=== PATIENT | male | born 1965 | race Caucasian/White ===

== ENCOUNTER 2018-08-09 21:06 | Emergency (ER) | payer OTHER ==
[~2018-08-09] VITALS: Ht 165.1 cm; Wt 81.7 kg
[2018-08-09] MEDS ORDERED: PRINIVIL20 M1 PO (21:18)
[2018-08-09] MEDS ORDERED: HYDROCHLOROTH12.5 M1 PO (21:18)
[2018-08-09] MEDS ORDERED: FLOMAX0.4 MG PO (21:18)
[2018-08-09 21:46] LABS: ABSOLUTE BASOPHILS 0.1 thou/uL (0.0-0.2); ABSOLUTE LYMPHOCYTES 1.5 thou/uL (0.8-5.3); ABSOLUTE MONOCYTES 0.5 thou/uL (0.0-1.2); ABSOLUTE NEUTROPHILS 6.5 thou/uL (1.6-8.1); BASOPHILS 1.1 %; EOSINOPHILS 0.4 %; HEMATOCRIT 43.1 % (42.0-52.0); HEMOGLOBIN 14.6 gm/dL (14.0-18.0); MCH 30.1 pg (26.0-34.0); MCHC 33.9 g/dL (28.0-37.0); MCV 88.6 fL (80.0-100.0); MONOCYTES 5.5 %; MPV 6.4 fl. (7.2-11.1); NUCLEATED RBCS 0 /100WBC; PLATELET COUNT* 320 thou/uL (150-400); RBC 4.87 mil/uL (4.50-6.00); RDW-CV 14.3 % (10.5-14.5); WBC 8.6 thou/uL (4.0-11.0)
[2018-08-09 22:14] LABS: ALBUMIN 3.6 g/dL (3.4-5.0); ALKALINE PHOSPHATASE 87 U/L (46-116); ANION GAP 11 mmol/L (7-16); BUN 9 mg/dL (7-18); CHLORIDE 103 mmol/L (98-107); CO2 24 mmol/L (21-32); GLUCOSE 108 mg/dL (70-99); POTASSIUM 3.4 mmol/L (3.5-5.1); SGOT 19 U/L (15-37); SGPT 25 U/L (30-65); SODIUM 138 mmol/L (136-145); TOTAL BILIRUBIN 0.5 mg/dL (<0.1-1.0); TOTAL PROTEIN 7.4 g/dL (6.4-8.2); TROPONIN-I LEVEL <0.06 ng/mL (<0.06)
[2018-08-09] MEDS ORDERED: PREDNISONE 20 M20 MG PO (22:57)
[2018-08-09] MEDS ORDERED: XARELTO15 MG PO (22:57)
[2018-08-09 23:39] VITALS: BP 146/94
--- NOTE | 2018-08-10 10:24 | EKG ---
[place] [address] ELECTROCARDIOGRAM REPORT Name: JANNET GARBER Room: [facility]#: [id number] Admission: 08/09/18 Attend Phys: Discharge: 08/09/18 Date of : 61 Report #: [id number] THIS REPORT FOR: //name// [facility] ED Test Date: 2018-08-09 Test Time: 21:32:35 Pat Name: JANNET GARBER Department: Room: Gender: M Layout Operator: SETH : 1965 Requested By: Jed Lira Order Number: [id number] MD: Enrique Bah Measurements Intervals [place] Rate: 103 P: 41 AR: 160 QRS: 47 QRSD: 106 T: 42 QT: 360 QTc: 471 Interpretive Statements Sinus tachycardia No previous ECG available for comparison Electronically Signed On 08-10-2018 10:24:07 ASSEMBLER MOVEMENT by Enrique Bah [email or web address] <ELECTRONICALLY SIGNED> By: Enrique Bah MD, [facility] 08/10/18 [id number] Enrique Bah MD, FACC /EPI
== END 2018-08-09 23:39 | disposition home or self-care (01) ==
LOC: M.ERS 21:06
PROVIDERS: Physician Assistant
DX: J44.1 Chronic obstructive pulmonary disease with (acute) exacerbation (principal); M94.0 Chondrocostal junction syndrome [Tietze]; R79.1 Abnormal coagulation profile; F17.210 Nicotine dependence, cigarettes, uncomplicated; Z88.1 Allergy status to other antibiotic agents

== ENCOUNTER 2018-09-05 08:01 | Inpatient (IN) | payer OTHER ==
[~2018-09-05] VITALS: Ht 162.6 cm; Wt 74.8 kg
[~2018-09-05 08:01] MED LIST: FLOMAX0.4 MG PO; HYDROCHLOROTH12.5 M1 PO; PREDNISONE 20 M20 MG PO; PRINIVIL20 M1 PO; XARELTO15 MG PO
[2018-09-05 08:07] VITALS: BP 178/100
[2018-09-05 08:34] LABS: BE 1.4 mmol/L (-2 to +3); PO2 77.4 mmHg (75.0-100.0)
[2018-09-05 08:39] LABS: ABSOLUTE BASOPHILS 0.1 thou/uL (0.0-0.2); ABSOLUTE EOSINOPHILS 0.2 thou/uL (0.0-0.7); ABSOLUTE LYMPHOCYTES 2.2 thou/uL (0.8-5.3); ABSOLUTE MONOCYTES 0.7 thou/uL (0.0-1.2); ABSOLUTE NEUTROPHILS 4.4 thou/uL (1.6-8.1); EOSINOPHILS 2.9 %; HEMATOCRIT 41.8 % (42.0-52.0); HEMOGLOBIN 14.3 gm/dL (14.0-18.0); LYMPHOCYTES 29.2 %; MCH 30.2 pg (26.0-34.0); MCHC 34.2 g/dL (28.0-37.0); MCV 88.6 fL (80.0-100.0); MPV 6.5 fl. (7.2-11.1); NUCLEATED RBCS 0 /100WBC; PLATELET COUNT* 314 thou/uL (150-400); POLYS 57.9 %; RBC 4.72 mil/uL (4.50-6.00); RDW-CV 14.1 % (10.5-14.5); WBC 7.6 thou/uL (4.0-11.0)
[2018-09-05 08:45] LABS: ANION GAP 10 mmol/L (7-16); APTT 28.1 Seconds (25.0-31.3); BUN 17 mg/dL (7-18); CALCIUM 8.8 mg/dL (8.5-10.1); CHLORIDE 103 mmol/L (98-107); CO2 24 mmol/L (21-32); CREATININE 1.1 mg/dL (0.6-1.3); GLUCOSE 104 mg/dL (70-99); POTASSIUM 3.8 mmol/L (3.5-5.1); SODIUM 137 mmol/L (136-145)
[2018-09-05 08:56] LABS: ALBUMIN 3.8 g/dL (3.4-5.0); ALKALINE PHOSPHATASE 80 U/L (46-116); NT-PRO BRAIN NAT PEPTIDE 11 pg/mL (<300); SGOT 25 U/L (15-37); SGPT 65 U/L (30-65); TOTAL BILIRUBIN 0.3 mg/dL (<0.1-1.0); TOTAL PROTEIN 7.3 g/dL (6.4-8.2); TROPONIN-I LEVEL <0.06 ng/mL (<0.06)
[2018-09-05 12:22] VITALS: BP 130/72
[2018-09-05 13:00] VITALS: BP 137/85
--- NOTE | 2018-09-05 16:31 | EKG ---
[place] [address] ELECTROCARDIOGRAM REPORT Name: SHIRLENE,JANNET Hendrickson Room: [address] ADM IN .R.#: [id number] Admission: 09/05/18 Attend Phys: Master Toledo MD Discharge: Date of : 61 Report #: [id number] THIS REPORT FOR: //name// [facility] ED Test Date: 2018-09-05 Test Time: 08:25:32 Pat Name: JANNET GARBER Department: Room: [facility] Gender: Plant Technical Specialist: Lane KLEIN : 1965 Requested By: Tiki Campos Order Number: [id number] MD: Maynor Mckeon Measurements Intervals [place] Rate: 87 P: 36 MA: 143 QRS: 53 QRSD: 103 T: 39 QT: 371 QTc: 447 Interpretive Statements Sinus rhythm Compared to ECG 08/09/2018 21:32:35 Sinus tachycardia no longer present Electronically Signed On 09-05-2018 16:30:57 MANAGER BUILDING by Maynor Mckeon [email or web address] <ELECTRONICALLY SIGNED> By: Maynor Mckeon MD, [facility] 09/05/18 1630 0825 Maynor Mckeon MD, [facility] /EPI
[2018-09-05 16:54] VITALS: BP 131/69
[2018-09-05 20:00] VITALS: BP 150/71
[2018-09-06] VITALS: BP 119/71
[2018-09-06 01:07] LABS: AMP/METHAMP Negative (Negative); BARBITURATES Negative (Negative); BENZODIAZEPINES Negative (Negative); COCAINE Negative (Negative); METHADONE Negative (Negative); OPIATES Negative (Negative); PCP Negative (Negative); THC Negative (Negative)
[2018-09-06 04:00] VITALS: BP 111/59
[2018-09-06 05:03] LABS: HEMATOCRIT 36.7 % (42.0-52.0); MCHC 33.3 g/dL (28.0-37.0); MPV 6.7 fl. (7.2-11.1); NUCLEATED RBCS 0 /100WBC; PLATELET COUNT* 299 thou/uL (150-400); RBC 4.08 mil/uL (4.50-6.00); RDW-CV 14.4 % (10.5-14.5); WBC 14.7 thou/uL (4.0-11.0)
[2018-09-06 05:10] LABS: HEMOGLOBIN 12.2 gm/dL (14.0-18.0)
[2018-09-06 05:24] LABS: CALCIUM 8.6 mg/dL (8.5-10.1); CREATININE 1.1 mg/dL (0.6-1.3); POTASSIUM 4.1 mmol/L (3.5-5.1)
[2018-09-06 05:50] LABS: ABSOLUTE LYMPHOCYTES 0.6 thou/uL (0.8-5.3); ABSOLUTE MONOCYTES 0.9 thou/uL (0.0-1.2); ABSOLUTE NEUTROPHILS 13.2 thou/uL (1.6-8.1); ANISOCYTOSIS 1+; PLATELET ESTIMATE ADEQUATE; POIKILOCYTOSIS 1+
[2018-09-06 08:34] VITALS: BP 138/85
[2018-09-06 10:00] VITALS: BP 129/74
[2018-09-06 12:00] VITALS: BP 129/74
--- NOTE | 2018-09-06 16:56 | CARDNUC ---
[place] [address] CARDIAC NUCLEAR IMAGING REPORT Name: JANNET GARBER Room: [address] IN [facility]#: [id number] Admission: 09/05/18 Attend Phys: Master Toledo, Discharge: Date of : 61 Date of Service: 09/06/18 1656 Report #: [id number] THIS REPORT FOR: //name// APPROVED REPORT Study performed: 09/05/2018 12:39:00 Indication: Chest pain, Dyspnea, Patient Location: In-Patient Stress Tech: Marie Wilkerson Stress Nurse: Esperanza Palma RN BMI: 0 Medical History Medical History: COPD Medications: hydralazine, xarelto, lisinopril, hctz Allergies: cipro Cardiac Risk Factors: age, tobacco Exercise History: Indeterminate Resting Data Rest SPECT myocardial perfusion imaging was performed in supine position 30 minutes following the intravenous injection of 10.7 mCi of Tc-99m Sestamibi. Time of rest injection: 08:10 The images were gated to evaluate regional wall motion and calculate left ventricular ejection fraction. Administration Route: IV Administration Site: Right AC Pharmacologic Stress Pharmacologic stress test was performed by injecting Regadenoson 0.4 mg IV push over 10-15 seconds immediately followed by the intravenous injection of 32.3 mCi of Tc-99m Sestamibi. Time of stress injection: 09:55 Administration Route: IV Administration Site: Right AC Heart Rate at time of stress injection: 130 bpm. Gated Stress SPECT was performed 40 minutes after stress injection. The images were gated to evaluate regional wall motion and calculate left ventricular ejection fraction. Prone [place] [address] CARDIAC NUCLEAR IMAGING REPORT Name: JANNET GARBER Room: [address]#: [id number] Admission: 09/05/18 Attend Phys: Master Toledo, Discharge: Date of : 61 Date of Service: 09/06/18 1656 Report #: [id number] Stress Test Details Stress Test: Pharmacologic stress was paired with low level exercise. HR Max Heart Rate (APMHR): 166 bpm Resting HR: 104 bpm Target HR (85% APMHR): 141 bpm Max HR Achieved: 130 bpm % of APMHR: 78 Recovery HR: 114 bpm BP Resting BP: 114/81 mmHg Max BP: 185/78 mmHg Recovery BP: 159/86 mmHg ECG Resting ECG: Sinus Rhythm Stress ECG: Sinus Tachycardia ST Change: None Arrhythmia: None Recovery ECG: Sinus Rhythm Recovery ST Change: None Recovery Arrhythmia: None Clinical Reason for Termination: Completed protocol The patient tolerated walking Lexiscan protocol without significant cardiac symptoms. Nurse Comments pt gait too unsteady to walk on treadmill Stress ECG Conclusion The baseline 12-lead EKG shows sinus rhythm with no significant ST or T wave abnormality. EKGs obtained during and post walking Lexiscan infusion showed sinus rhythm and sinus tachycardia with no significant ST or T wave changes when compared to baseline. There were no stress-induced arrhythmias. Study Quality Study: Good Artifact: Mild Diaphragmatic artifact Study Data At rest, the left ventricular ejection fraction was 80%.. Post stress, the left ventricular ejection was 80 %.. [place] [address] CARDIAC NUCLEAR IMAGING REPORT Name: JANNET GARBER Room: [address] IN ..#: [id number] Admission: 09/05/18 Attend Phys: Master Toledo, Discharge: Date of : 61 Date of Service: 09/06/18 1656 Report #: [id number] TID = 1.13. Perfusion Mild photopenia of the inferior wall on both stress and rest images with normal underlying wall motion abnormality consistent with diaphragmatic attenuation artifact. No other defects noted. Wall Motion Normal left ventricular wall motion. Nuclear Conclusion ECG Findings: negative for ischemia Clinical Findings: negative for ischemia Nuclear Findings: negative for ischemia Exercise Capacity: not assessed Left Ventricular Function: normal Risk Study: low Myocardial perfusion images show no defect to suggest infarct. Left ventricular systolic function normal on gated studies with normal wall motion. This is a low risk study. <Conclusion> The baseline 12-lead EKG shows sinus rhythm with no significant ST or T wave abnormality. EKGs obtained during and post walking Lexiscan infusion showed sinus rhythm and sinus tachycardia with no significant ST or T wave changes when compared to baseline. There were no stress-induced arrhythmias. <ELECTRONICALLY SIGNED> By: Maynor Mckeon MD, FACC 09/06/18 1656 165 165 Maynor Mckeon MD, FACC /INF
[2018-09-06] MEDS ORDERED: SYMBICORT160 MCG/4. INH (17:38)
[2018-09-06] MEDS ORDERED: CEFDINIR300 MG PO (17:38)
[2018-09-06] MEDS ORDERED: PROAIR HFA8.5 GM INH (17:42)
[2018-09-06] MEDS ORDERED: PREDNISONE 10 M10 MG PO (17:44)
[2018-09-06] MEDS ORDERED: ROBITUSSIN100 MG/53 PO (17:57)
[2018-09-06 18:06] VITALS: BP 129/74
--- NOTE | 2018-09-07 08:20 | CON ---
[address] [address] CONSULTATION Name: SHIRLENEJANNET W Room: [address] IN M.R.#: [id number] Admission: 09/05/18 Attend Phys: Master Toledo MD Discharge: 09/06/18 Date of : 61 Report #: [id number] THIS REPORT FOR: //name// CC: Jacinto Sandoval DO Master Toledo DATE OF SERVICE: 09/05/2018 ATTENDING PHYSICIAN: Master Toledo MD LOCATION: The patient is located in room 229. PRIMARY CARE PHYSICIAN: Jacinto Sandoval DO HISTORY OF PRESENT ILLNESS: Thank you for referring the above patient for pulmonary consultation. I saw the patient in the hospital at [facility] on 09/05/2018. The patient has had dyspnea, cough and bronchitis for the last month or so. He has been more short of breath. He thinks he has actually been having some atypical chest pain, cough and shortness of breath for about 6 months now. He has had two CT angios of the chest, which have been negative for pulmonary emboli and negative for aortic dissection. He has upper lobe emphysema. Initially, his chest x-ray a month ago in the Emergency Room thought he had a 4 cm right lower lobe rounded infiltrate that has resolved on CAT scan. He is trying to cough up and bring up some thick tanned clear sputum. It is hard to mobilize. He has been on two prednisone tapers from which he feels better and then when he is just on the albuterol inhaler he feels worse. He was half pack to a pack a day smoking . He says last time he smoked a cigarette was a month ago. I am not sure if he is up to date on immunizations. The patient was actually on Xarelto for a while and then off the Xarelto. The patient has neck pain, upper chest pain, wheezing and dyspnea and feels better after his breathing treatments. He does not have a nebulizer at home. Working on insurance. He is living with his mother currently. PAST MEDICAL HISTORY: COPD for the past 1 to 6 months, he has had some atypical chest pain, elevated D-dimer, had a history of prostate enlargement in the past and also has a history of mild hypertension. ALLERGIES: HE HAS MEDICAL ALLERGIES TO CIPROFLOXACIN, WHICH GIVES HIM NAUSEA. MEDICATIONS: His outpatient medications include lisinopril, Prinivil 20 mg daily, hydrochlorothiazide 12.5 mg daily and tamsulosin 0.4 mg daily. Currently in the hospital, he is on IV Solu-Medrol 60 mg q.8 hours, ceftriaxone 1 gram IV piggyback daily and [place] [address] CONSULTATION Name: JANNET GARBER Room: [address]#: [id number] Admission: 09/05/18 Attend Phys: Master Toledo MD Discharge: 09/06/18 Date of : 61 Report #: [id number] FAMILY HISTORY: Negative for premature cardiopulmonary disease. 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 He states he has had some back pain and problems in his back with some back surgery and that he is disabled at this time. He is a prior former smoker of a pack a day. He states he quit about a month ago. He has about a 67-dntt-eisz history of smoking. He denies any alcohol or illicit drug use. REVIEW OF SYSTEMS: Fourteen point review of systems reviewed and negative except for pertinent positives noted in the HPI. PHYSICAL EXAMINATION: GENERAL: This is a 52-year-old male, in mild distress. He can talk to me in full sentences at this time. VITAL SIGNS: Blood pressure is 130/72, heart rate is 96-100, respirations are 16 over a backup rate of 16, room air sats 97%. He is 5 feet 7 inches tall, weight 75 kilograms or 170 pounds and BMI is 28. HEENT: Sinuses nontender. Pharynx, he has some periodontal disease. Teeth are in fair repair, but he does have some poor dentition noted. NECK: Supple without nodes. No subcutaneous air is noted. No masses or adenopathy. CHEST: Shows diminished breath sounds with a few rhonchi bilaterally in the upper lobes, prolonged expiratory phase noted. CARDIOVASCULAR: Regular rate and rhythm without murmur, gallop or rub. Heart rate is 96-100. No S3 is noted. No chest wall tenderness. ABDOMEN: Soft without masses or megaly. EXTREMITIES: No calf tenderness. No cyanosis, clubbing or edema. NEUROLOGIC: Grossly intact. He can get up and off the chair without problems. LABORATORY DATA: From 09/05/2018, hemoglobin is 14, white count 7600, platelets are 314,000 with normal differential. Sodium is 137, potassium is 3.8, carbon dioxide is 24 and glucose is 104. Anti-proBNP is 11. Albumin is 3.8. ABGs on room air show pO2 of 77, a pH 7.51, pCO2 is 30, bicarbonate is 23, saturation is 95% and carboxyhemoglobin is only 0.3. Coags are within normal limits. CT angio of the chest was negative for pulmonary emboli, upper lobe COPD is noted. Neck, thoracic and mediastinum are unremarkable. The abdominal aorta is normal in caliber and size. No pulmonary embolism was noted. IMPRESSION: 1. Dyspnea, most likely related to upper lobe emphysema, probably moderate to moderately severe. 2. Acute bronchitis and bronchospasm. 3. Dyspnea. 4. Hypertension. 5. Cigarette use. 6. [place] [address] CONSULTATION Name: JANNET GARBER Room: [address]#: [id number] Admission: 09/05/18 Attend Phys: Master Toledo MD Discharge: 09/06/18 Date of : 61 Report #: [id number] PLAN: The patient is going to have a chemical induced stress test tomorrow, need to treat his bronchospasm, we will add DuoNeb treatments, add some montelukast something relatively inexpensive he can take at home. We will set him up for DuoNeb nebulizers at home even though he does not have insurance. We will see if we can get that set up and have him look into getting Medicaid or some sort of insurance. Outpatient PFTs and discontinuing all smoking would be helpful. May need room air exercise oximetry before he goes home. This has been a level 5 consult on this patient. <ELECTRONICALLY SIGNED> By: Mike Redmond MD 09/07/18 0820 1425 [id number] patti Art
== END 2018-09-06 18:32 | disposition home or self-care (01) | DRG 202 ==
LOC: M.ERS 08:01 → M.TBA-ER 10:46 → M.2W 10:46
PROVIDERS: Personal Emergency Response Attendant; ADMIT Internal Medicine
DX: J20.9 Acute bronchitis, unspecified (principal); J44.0 Chronic obstructive pulmonary disease with (acute) lower respiratory infection; J44.1 Chronic obstructive pulmonary disease with (acute) exacerbation; N40.0 Benign prostatic hyperplasia without lower urinary tract symptoms; I10 Essential (primary) hypertension; R07.89 Other chest pain; R73.9 Hyperglycemia, unspecified; Z88.1 Allergy status to other antibiotic agents; Z87.891 Personal history of nicotine dependence; Z79.899 Other long term (current) drug therapy

== ENCOUNTER 2018-10-03 21:48 | Emergency (ER) | payer OTHER ==
[~2018-10-03] VITALS: Ht 162.6 cm; Wt 77.1 kg
[~2018-10-03 21:48] MED LIST changes: +CEFDINIR300 MG PO; +PREDNISONE 10 M10 MG PO; +PROAIR HFA8.5 GM INH; +ROBITUSSIN100 MG/53 PO; +SYMBICORT160 MCG/4. INH
[2018-10-03] MEDS ORDERED: FLONASE 0.05%50 MCG NASAL (22:01)
[2018-10-03 22:36] LABS: ABSOLUTE BASOPHILS 0.1 thou/uL (0.0-0.2); ABSOLUTE EOSINOPHILS 0.1 thou/uL (0.0-0.7); ABSOLUTE LYMPHOCYTES 1.8 thou/uL (0.8-5.3); ABSOLUTE MONOCYTES 0.7 thou/uL (0.0-1.2); ABSOLUTE NEUTROPHILS 6.2 thou/uL (1.6-8.1); BASOPHILS 0.8 %; EOSINOPHILS 1.1 %; HEMOGLOBIN 14.3 gm/dL (14.0-18.0); LYMPHOCYTES 20.2 %; MCHC 33.9 g/dL (28.0-37.0); MCV 88.4 fL (80.0-100.0); MONOCYTES 7.6 %; MPV 6.2 fl. (7.2-11.1); NUCLEATED RBCS 0 /100WBC; PLATELET COUNT* 337 thou/uL (150-400); POLYS 70.3 %; RBC 4.76 mil/uL (4.50-6.00); RDW-CV 15.1 % (10.5-14.5); WBC 8.9 thou/uL (4.0-11.0)
[2018-10-03 22:58] LABS: ALBUMIN 3.7 g/dL (3.4-5.0); ALKALINE PHOSPHATASE 73 U/L (46-116); ANION GAP 9 mmol/L (7-16); BUN 12 mg/dL (7-18); CHLORIDE 102 mmol/L (98-107); CO2 26 mmol/L (21-32); CREATININE 1.1 mg/dL (0.6-1.3); GLUCOSE 109 mg/dL (70-99); POTASSIUM 3.6 mmol/L (3.5-5.1); SGOT 40 U/L (15-37); SGPT 109 U/L (30-65); SODIUM 137 mmol/L (136-145); TOTAL BILIRUBIN 0.5 mg/dL (<0.1-1.0); TOTAL PROTEIN 7.3 g/dL (6.4-8.2); TROPONIN-I LEVEL <0.06 ng/mL (<0.06)
[2018-10-03 23:15] LABS: INFLUENZA A ANTIGEN None Detected (None Detect); INFLUENZA B ANTIGEN None Detected (None Detect)
[2018-10-03] MEDS ORDERED: PREDNISONE 10 M10 M1 PO (23:24)
[2018-10-03 23:30] VITALS: BP 145/78
--- NOTE | 2018-10-04 09:39 | EKG ---
[place] [address] ELECTROCARDIOGRAM REPORT Name: RAJENDRA GARBERNIS Madhavi Room: [facility]#: [id number] Admission: 10/03/18 Attend Phys: Discharge: 10/03/18 Date of : 61 Report #: [id number] THIS REPORT FOR: //name// [facility] Test Date: 2018-10-03 Test Time: 22:23:23 Pat Name: JANNET GARBER Department: Room: Gender: M Time Study Observer: : 1965 Requested By: Adali Reynoso Order Number: [id number] MD: Wilbert Ty Measurements Intervals [place] Rate: 90 P: 54 ID: [id number] QRS: 35 QRSD: 98 T: 65 QT: 391 QTc: 479 Interpretive Statements Sinus rhythm ST elevation, consider early repolarization Borderline prolonged QT interval Compared to ECG 09/05/2018 08:25:32 no change Electronically Signed On 10-04-2018 9:39:03 CDT by Wilbert Ty [email or web address] <ELECTRONICALLY SIGNED> By: Wilbert Ty MD, [facility] 10/04/18 0939 22 22 Wilbert Ty MD, FACC /EPI
== END 2018-10-03 23:30 | disposition home or self-care (01) ==
LOC: M.ERS 21:48
PROVIDERS: Nurse Practitioner Family
DX: J44.1 Chronic obstructive pulmonary disease with (acute) exacerbation (principal); Z88.1 Allergy status to other antibiotic agents

== ENCOUNTER 2018-10-07 20:48 | Emergency (ER) | payer OTHER ==
[~2018-10-07] VITALS: Ht 162.6 cm; Wt 77.1 kg
[~2018-10-07 20:48] MED LIST changes: +FLONASE 0.05%50 MCG NASAL; +PREDNISONE 10 M10 M1 PO
[2018-10-07 22:05] LABS: ABSOLUTE LYMPHOCYTES 2.1 thou/uL (0.8-5.3); ABSOLUTE MONOCYTES 0.7 thou/uL (0.0-1.2); ABSOLUTE NEUTROPHILS 6.7 thou/uL (1.6-8.1); BASOPHILS 0.5 %; EOSINOPHILS 0.4 %; HEMATOCRIT 41.2 % (42.0-52.0); HEMOGLOBIN 13.9 gm/dL (14.0-18.0); LYMPHOCYTES 22.2 %; MCH 30.1 pg (26.0-34.0); MCHC 33.7 g/dL (28.0-37.0); MCV 89.3 fL (80.0-100.0); MONOCYTES 7.3 %; MPV 6.2 fl. (7.2-11.1); NUCLEATED RBCS 0 /100WBC; PLATELET COUNT* 373 thou/uL (150-400); POLYS 69.6 %; RBC 4.62 mil/uL (4.50-6.00); WBC 9.6 thou/uL (4.0-11.0)
[2018-10-07 22:22] LABS: ALBUMIN 3.6 g/dL (3.4-5.0); ALKALINE PHOSPHATASE 64 U/L (46-116); ANION GAP 8 mmol/L (7-16); BUN 19 mg/dL (7-18); CALCIUM 8.1 mg/dL (8.5-10.1); CHLORIDE 101 mmol/L (98-107); CO2 24 mmol/L (21-32); CREATININE 1.2 mg/dL (0.6-1.3); GLUCOSE 100 mg/dL (70-99); POTASSIUM 3.5 mmol/L (3.5-5.1); SGOT 17 U/L (15-37); SGPT 53 U/L (30-65); SODIUM 133 mmol/L (136-145); TOTAL BILIRUBIN 0.4 mg/dL (<0.1-1.0); TOTAL PROTEIN 6.8 g/dL (6.4-8.2); TROPONIN-I LEVEL <0.06 ng/mL (<0.06)
[2018-10-08] MEDS ORDERED: ALBUTEROL2.5 MG/31 INH (00:17)
[2018-10-08] MEDS ORDERED: LOPRESSOR50 PO (00:17)
[2018-10-08] MEDS ORDERED: SINGULAIR 10 MG10 M1 PO (00:17)
[2018-10-08 00:30] VITALS: BP 100/68
--- NOTE | 2018-10-08 12:15 | EKG ---
[place] [address] ELECTROCARDIOGRAM REPORT Name: RAJENDRA GARBERNIS IVIS Room: [facility]#: [id number] Admission: 10/07/18 Attend Phys: Discharge: 10/08/18 Date of : 61 Report #: [id number] THIS REPORT FOR: //name// [facility] ED Test Date: 2018-10-07 Test Time: 21:18:22 Pat Name: JANNET GARBER Department: Room: Gender: M Slate Worker: JOSE : 1965 Requested By: Marli Crooks Order Number: [id number] MD: Maynor Mckeon Measurements Intervals [place] Rate: 98 P: 32 CT: 154 QRS: 34 QRSD: 100 T: 41 QT: 344 QTc: 440 Interpretive Statements Sinus rhythm Abnormal R-wave progression, late transition Compared to ECG 10/03/2018 22:23:23 ST (T wave) deviation no longer present Electronically Signed On 10-08-2018 12:15:13 CDT by Maynor Mckeon [email or web address] <ELECTRONICALLY SIGNED> By: Maynor Mckeon MD, [facility] 10/08/18 1215 17 17 Maynor Mckeon MD, FAC /EPI
== END 2018-10-08 00:42 | disposition home or self-care (01) ==
LOC: M.ERS 20:48
PROVIDERS: Emergency Medicine
DX: J31.0 Chronic rhinitis (principal); R22.1 Localized swelling, mass and lump, neck; Z88.1 Allergy status to other antibiotic agents; J44.9 Chronic obstructive pulmonary disease, unspecified; N40.0 Benign prostatic hyperplasia without lower urinary tract symptoms

== ENCOUNTER 2020-01-15 17:59 | Emergency (ER) | payer MEDICAID ==
[~2020-01-15] VITALS: Ht 162.6 cm; Wt 81.7 kg
[~2020-01-15 17:59] MED LIST changes: +ALBUTEROL2.5 MG/31 INH; +LOPRESSOR50 PO; +SINGULAIR 10 MG10 M1 PO
[2020-01-15 18:06] VITALS: BP 142/84
[2020-01-15] MEDS ORDERED: NORCO 5-325 TA1 EAC1 PO (18:16)
[2020-01-15] MEDS ORDERED: AUGMENTIN 875-1 EACH PO ×2 (18:16→18:17)
== END 2020-01-15 18:57 | disposition home or self-care (01) ==
LOC: M.ERS 17:59
DX: S61.431A Puncture wound without foreign body of right hand, initial encounter (principal); L08.9 Local infection of the skin and subcutaneous tissue, unspecified; J44.9 Chronic obstructive pulmonary disease, unspecified; I10 Essential (primary) hypertension; Z88.1 Allergy status to other antibiotic agents; W55.01XA Bitten by cat, initial encounter; Y93.89 Activity, other specified; Y92.89 Other specified places as the place of occurrence of the external cause; Y99.8 Other external cause status